=== PATIENT | male | born 1980 | race Caucasian/White ===

== ENCOUNTER 2018-01-28 21:55 | Emergency (ER) | END 2018-01-28 22:12 | disposition left against medical advice (07) ==

== ENCOUNTER 2018-02-15 21:19 | Emergency (ER) | END 2018-02-15 22:15 | disposition left against medical advice (07) ==

== ENCOUNTER 2018-06-17 12:02 | Emergency (ER) | END 2018-06-17 16:09 | disposition home or self-care (01) ==

== ENCOUNTER 2018-10-30 13:41 | Emergency (ER) | payer MEDICAID ==
[~2018-10-30] VITALS: Ht 172.7 cm; Wt 80.2 kg
[~2018-10-30 13:41] MED LIST: CYCL10TA7 PO; TRAM50TA2 PO
[2018-10-30 14:02] VITALS: BP 106/67; PULSE 84; RESP 18; Ht 172.7 cm; Wt 80.2 kg
[2018-10-30] MEDS ORDERED: CYCL10TA7 PO (15:48)
[2018-10-30] MEDS ORDERED: TRAM50TA2 PO (15:48)
--- NOTE | 2018-10-30 15:49 | ERD ---
ER Documentation Chief Complaint Chief Complaint needs med refill ROS All systems reviewed and are negative except as per history of present illness. Medications Home Meds Active Scripts Cyclobenzaprine Hcl* (Cyclobenzaprine Hcl*) 10 Mg Tablet, 10 MG PO TID PRN for back pain, #15 TAB Prov:MICHAEL WAGONER 10/30/18 Tramadol HCl (Tramadol HCl) 50 Mg Tablet, 50 MG PO Q6H PRN for PAIN, #15 TAB Prov:MICHAEL WAGONER 10/30/18 Cyclobenzaprine Hcl* (Cyclobenzaprine Hcl*) 10 Mg Tablet, 10 MG PO TID, #20 TAB Prov:SOLITARIO DAILEY MD 06/17/18 Tramadol HCl (Tramadol HCl) 50 Mg Tablet, 50 MG PO Q4 PRN for PAIN, #15 TAB Prov:SOLITARIO DAILEY MD 06/17/18 Reported Medications [None] No Conflict Check 01/31/10 Allergies Allergies: Coded Allergies: No Known Allergies (Verified Allergy, Mild, 01/31/10) PMhx/Soc History of Surgery: No Anesthesia Reaction: No Hx Neurological Disorder: No Hx Respiratory Disorders: No Hx Cardiac Disorders: No Hx Psychiatric Problems: No Hx Miscellaneous Medical Probl: No Hx Alcohol Use: Yes Hx Substance Use: Yes Hx Tobacco Use: Yes Smoking Status: Current every day smoker Physical Exam Vitals Vital Signs Date Temp Pulse Resp B/P (MAP) Pulse Ox O2 O2 Flow FiO2 Time Delivery Rate 10/30/18 99.9 84 18 106/67 98 14:02 (80) Physical Exam Const: No acute distress Head: Atraumatic Eyes: Normal Conjunctiva ENT: Normal External Ears, Nose and Mouth. Neck: Full range of motion. No meningismus. Resp: Clear to auscultation bilaterally Cardio: Regular rate and rhythm, no murmurs Abd: Soft, non tender, non distended. Normal bowel sounds Skin: No petechiae or rashes Back: No midline or flank tenderness Ext: No cyanosis, or edema Neur: Awake and alert Psych: Normal Mood and Affect Departure Diagnosis: Primary Impression: Back pain Back pain location: low back pain Chronicity: unspecified Back pain laterality: unspecified Sciatica presence: without sciatica Qualified Codes: M54.5 - Low back pain Condition: Fair Patient Instructions: Back Pain (Acute Or Chronic) Referrals: [facility] YOU HAVE RECEIVED A MEDICAL SCREENING EXAM AND THE RESULTS INDICATE THAT YOU DO NOT HAVE A CONDITION THAT REQUIRES URGENT TREATMENT IN THE EMERGENCY DEPARTMENT. FURTHER EVALUATION AND TREATMENT OF YOUR CONDITION CAN WAIT UNTIL YOU ARE SEEN IN YOUR DOCTORS OFFICE WITHIN THE NEXT 1-2 DAYS. IT IS YOUR RESPONSIBILITY TO MAKE AN APPOINTMENT FOR FOLOW-UP CARE. IF YOU HAVE A PRIMARY DOCTOR --you should call your primary doctor and schedule an appointment IF YOU DO NOT HAVE A PRIMARY DOCTOR YOU CAN CALL OUR PHYSICIAN REFERRAL HOTLINE AT IF YOU CAN NOT AFFORD TO SEE A PHYSICIAN YOU CAN CHOSE FROM THE FOLLOWING [facility] [address] [facility]. [facility] [address] [facility]. [facility] [address] [facility] [facility] [address] [facility]. [facility] [address] [facility]. [facility]. [address] Additional Instructions: Call your primary care doctor TOMORROW for an appointment during the next 1-2 days.See the doctor sooner or return here if your condition worsens before your appointment time. MICHAEL WAGONER DO Oct 30, 2018 15:49
== END 2018-10-30 15:53 | disposition home or self-care (01) ==
LOC: FTE 13:41
DX: M54.5 Low back pain (principal); F17.210 Nicotine dependence, cigarettes, uncomplicated
CPT/HCPCS: 99281

== ENCOUNTER 2018-12-13 18:31 | Emergency (ER) | payer MEDICAID ==
[~2018-12-13] VITALS: Ht 160 cm; Wt 83.8 kg
[2018-12-13 18:37] VITALS: Ht 160 cm; Wt 83.8 kg
--- NOTE | 2018-12-13 23:03 | ERD ---
ER Documentation Chief Complaint Chief Complaint CP, 03/28, "PRESSURE", RADIATES RIGHT SHOULDER AND BACK X YESTERDAY. HPI This is a 38-year-old male who presents for evaluation of chest pressure, that radiates to his right shoulder for the last day. He denies any exertional symptoms he has had no shortness of breath, the pain is mainly associated with movement. He has not had any leg swelling, no hemoptysis, no fever. He has no cardiac history, no family history of heart disease, and he does not smoke tobacco. ROS All systems reviewed and are negative except as per history of present illness. Medications Home Meds Active Scripts Cyclobenzaprine Hcl* (Cyclobenzaprine Hcl*) 10 Mg Tablet, 10 MG PO TID PRN for back pain, #15 TAB Prov:MICHAEL WAGONER DO 10/30/18 Tramadol HCl (Tramadol HCl) 50 Mg Tablet, 50 MG PO Q6H PRN for PAIN, #15 TAB Prov:MICHAEL WAGONER DO 10/30/18 Cyclobenzaprine Hcl* (Cyclobenzaprine Hcl*) 10 Mg Tablet, 10 MG PO TID, #20 TAB Prov:SOLITARIO DAILEY MD 06/17/18 Tramadol HCl (Tramadol HCl) 50 Mg Tablet, 50 MG PO Q4 PRN for PAIN, #15 TAB Prov:SOLITARIO DAILEY MD 06/17/18 Reported Medications [None] No Conflict Check 01/31/10 Allergies Allergies: Coded Allergies: No Known Allergies (Verified Allergy, Mild, 01/31/10) PMhx/Soc Medical and Surgical Hx: pt denies Medical Hx, pt denies Surgical Hx History of Surgery: No Anesthesia Reaction: No Hx Neurological Disorder: No Hx Respiratory Disorders: No Hx Cardiac Disorders: No Hx Psychiatric Problems: No Hx Miscellaneous Medical Probl: No Hx Alcohol Use: Yes (socially) Hx Substance Use: Yes Hx Tobacco Use: Yes Smoking Status: Current every day smoker Physical Exam Vitals Vital Signs Date Temp Pulse Resp B/P (MAP) Pulse Ox O2 O2 Flow FiO2 Time Delivery Rate 12/13/18 98.3 80 18 118/74 96 18:37 (89) Physical Exam Const: Well developed, well-nourished appears stated age Head: Atraumatic Eyes: Normal Conjunctiva ENT: Normal External Ears, Nose and Mouth. Neck: Full range of motion. No meningismus. Resp: Clear to auscultation bilaterally, no wheezes rales or rhonchi Cardio: Regular rate and rhythm, no murmurs Abd: Soft, non tender, non distended. Normal bowel sounds Skin: No petechiae or rashes Back: No midline or flank tenderness Ext: No cyanosis, or edema Neur: Awake and alert Psych: Normal Mood and Affect Result Diagram: 12/13/18195612/13/181956 Results 24 hrs Laboratory Tests Test 12/13/18 19:57 12/13/18 22:00 White Blood Count 8.4 10^3/ul Red Blood Count 4.86 10^6/ul Hemoglobin 14.0 g/dl Hematocrit 42.0 % Mean Corpuscular Volume 86.4 fl Mean Corpuscular Hemoglobin 28.8 pg Mean Corpuscular Hemoglobin Concent 33.3 g/dl Red Cell Distribution Width 13.7 % Platelet Count 213 10^3/UL Mean Platelet Volume 10.4 fl Immature Granulocytes % 0.200 % Neutrophils % 47.0 % Lymphocytes % 42.9 % Monocytes % 7.9 % Eosinophils % 1.4 % Basophils % 0.6 % Nucleated Red Blood Cells % 0.0 /100WBC Immature Granulocytes # 0.020 10^3/ul Neutrophils # 3.9 10^3/ul Lymphocytes # 3.6 10^3/ul Monocytes # 0.7 10^3/ul Eosinophils # 0.1 10^3/ul Basophils # 0.1 10^3/ul Nucleated Red Blood Cells # 0.0 10^3/ul Sodium Level 143 mmol/L Potassium Level 3.8 mmol/L Chloride Level 107 mmol/L Carbon Dioxide Level 28 mmol/L Anion Gap 8 Blood Urea Nitrogen 9 mg/dl Creatinine 0.57 mg/dl Est Glomerular Filtrat Rate mL/min > 60 mL/min Glucose Level 104 mg/dl Calcium Level 9.4 mg/dl Total Bilirubin 0.2 mg/dl Direct Bilirubin 0.00 mg/dl Indirect Bilirubin 0.2 mg/dl Aspartate Amino Transf (AST/SGOT) 27 IU/L Alanine Aminotransferase (ALT/SGPT) 44 IU/L Alkaline Phosphatase 81 IU/L Troponin I < 0.012 ng/ml < 0.012 ng/ml Total Protein 7.0 g/dl Albumin 4.1 g/dl Globulin 2.90 g/dl Albumin/Globulin Ratio 1.41 Procedures/MDM The patient presents with chest pain and I considered pulmonary embolism, aortic dissection, pneumothorax among other diagnoses. Evaluation for acute coronary syndrome was performed. The HEART score (www.mdcalc.com) was utilized for risk stratification and found to be = 3. Repeat EKG and troponin @ 3 hours were unchanged. Based on this evaluation the patients risk of major adverse cardiac events is <1%. I did offer the patient admission, however he felt comfortable with discharge home, stating that he would prefer to follow-up with his PMD. Shared decision making occurred with patient and the decision has been made to discharge the patient for outpatient evaluation and functional study within 72 hours. EKG: Rate/Rhythm: Normal Sinus Rhythm QRS, ST, T-waves: No changes consistent w/ acute ischemia Impression: No evidence of ischemia or arrhythmia Departure Diagnosis: Primary Impression: Chest pain Chest pain type: unspecified Qualified Codes: R07.9 - Chest pain, unspecified Condition: Stable BARRON RESENDIZ MD Dec 13, 2018 23:03
[2018-12-13 23:17] VITALS: BP 136/94; PULSE 82; RESP 18
== END 2018-12-13 23:20 | disposition home or self-care (01) ==
LOC: E/R 18:31
DX: R07.89 Other chest pain (principal); F17.210 Nicotine dependence, cigarettes, uncomplicated
CPT/HCPCS: 71045; 80053; 84484; 85025; 93005; Z7502

== ENCOUNTER 2019-06-16 14:06 | Emergency (ER) | payer MEDICAID, OTHER ==
[~2019-06-16] VITALS: Ht 165.1 cm; Wt 80.0 kg
[~2019-06-16 14:06] MED LIST changes: +HYDR-4011 PO; +IBUP800T48 PO
[2019-06-16 14:10] VITALS: Ht 165.1 cm; Wt 80.0 kg
[2019-06-16 18:01] VITALS: BP 121/108; PULSE 61; RESP 18
== END 2019-06-16 18:05 | disposition home or self-care (01) ==
LOC: E/R 14:06
DX: R07.89 Other chest pain (principal); F17.210 Nicotine dependence, cigarettes, uncomplicated
CPT/HCPCS: 71045; 80053; 84484; 85025; 93005; Z7502